=== PATIENT | female | born 1955 | race Caucasian/White ===

== ENCOUNTER 2019-03-15 04:19 | Inpatient (IN) | payer MEDICARE, MEDICAID ==
[2019-03-12 14:09] LABS: BASOPHILS # (AUTO) 0.04 x10^3/uL (0-0.1); BASOPHILS % (AUTO) 0 % (0-1); EOSINOPHILS # (AUTO) 0.14 x10^3/uL (0-0.4); EOSINOPHILS % (AUTO) 1 % (1-7); LYMPHOCYTES # (AUTO) 3.53 x10^3/uL (1-3.4); LYMPHOCYTES % (AUTO) 32 % (22-44); MD NO; MEAN CORPUSCULAR HEMOGLOBIN 29.6 pg (27.0-34.8); MEAN CORPUSCULAR HGB CONC 32.7 g/dL (32.4-35.8); MEAN CORPUSCULAR VOLUME 90.6 fL (80-100); MEAN PLATELET VOLUME 7.4 fL (7.4-10.4); MONOCYTES # (AUTO) 0.68 x10^3/uL (0.2-0.8); MONOCYTES % (AUTO) 6 % (2-9); NEUTROPHILS % (AUTO) 60 % (42-75); PLATELET COUNT 358 x10^3/uL (130-400); RED BLOOD COUNT 4.63 x10^6/uL (3.82-5.3); RED CELL DISTRIBUTION WIDTH 14.8 % (9.6-15.2)
[2019-03-12 14:21] LABS: ALBUMIN 3.6 g/dL (3.4-5.0); ANION GAP 6 mmol/L (5-15); CHLORIDE 105 mmol/L (98-107)
[2019-03-12 14:26] LABS: ALANINE AMINOTRANSFERASE 35 U/L (12-78); ALKALINE PHOSPHATASE 117 U/L (45-117); BILIRUBIN,TOTAL 0.3 mg/dL (0.2-1.0)
[2019-03-12 14:29] LABS: MICROSCOPIC NOT IND
[2019-03-12 14:33] LABS: INTERNATIONAL NORMALIZED RATIO 0.95 (0.93-1.1)
[~2019-03-15] VITALS: Ht 162.6 cm; Wt 113.0 kg
[~2019-03-15 04:19] MED LIST: FURO20TA3 PO; HYDR50TA13 PO; LAMO200T49 PO; METO25TA35 PO; OMEP-110 PO; QUET400T4 PO; TRAM50TA2 PO
[2019-03-15] MEDS ORDERED: CHLORHEXIDINE 15 ML UDC MM SCH (05:00)
[2019-03-15] MEDS ORDERED: INSULIN LISPRO 100 UNITS/ML, PEN SQ-INSULIN SCH (05:00)
[2019-03-15] MEDS ORDERED: DO NOT GIVE MC SCH (05:00)
[2019-03-15] MEDS: MUPIROCIN OINT 2%, 22GM TP SCH ×2 (05:51→19:59)
[2019-03-15 05:55] VITALS: BP_SYST 142; BP_SYST 150; BP_DIAS 82; BP_DIAS 83
[2019-03-15] MEDS ORDERED: MIDAZOLAM 10MG/2 ML ONE (06:47)
[2019-03-15] MEDS ORDERED: FENTANYL PF 250 MCG/5ML ONE ×6 (06:47→10:00)
[2019-03-15] MEDS ORDERED: PROPOFOL 10 MG/ML, 20ML ONE (06:48)
[2019-03-15] MEDS ORDERED: AMINOCAPROIC ACID 250 MG/ML, 20ML ONE ×2 (06:48)
[2019-03-15] MEDS ORDERED: ROCURONIUM 10MG/ML,5ML ONE ×2 (06:48)
[2019-03-15] MEDS ORDERED: VANCOMYCIN 1,700 MG in SODIUM CHLORIDE 0.9% 250 ML IV PRN (07:30)
[2019-03-15] MEDS ORDERED: REGULAR INSULIN 62.5 UNITS in SODIUM CHLORIDE 0.9% 249.375 ML IV PRN ×2 (07:30→07:31)
[2019-03-15] MEDS ORDERED: DEXMEDETOMIDINE 200 MCG in SODIUM CHLORIDE 0.9% 48 ML IV SCH (07:30)
[2019-03-15] MEDS ORDERED: MANNITOL PMX 20% 500 ML IVPB PRN (07:30)
[2019-03-15] MEDS ORDERED: PHENYLEPHRINE 10 MG in SODIUM CHLORIDE 0.9% 249 ML IV PRN ×2 (07:30→07:31)
[2019-03-15] MEDS ORDERED: POTASSIUM CHLORIDE 80 MEQ, SODIUM BICARBONATE 8.4% 10 MEQ, MAGNESIUM SULFATE 0.5 GM, LI... IV PRN (07:30)
[2019-03-15] MEDS ORDERED: EPINEPHRINE 2 MG in SODIUM CHLORIDE 0.9% 248 ML IV SCH (07:30)
[2019-03-15] MEDS ORDERED: ALBUMIN HUMAN 5% 500 ML IV PRN (07:30)
[2019-03-15] MEDS ORDERED: CEFUROXIME 1.5 GM in SODIUM CHLORIDE 0.9% 50 ML IVPB PRN (07:30)
[2019-03-15] MEDS ORDERED: SODIUM CHLORIDE 0.9% 1,000 ML IV PRN (07:31)
[2019-03-15] MEDS ORDERED: DEXMEDETOMIDINE 200 MCG in SODIUM CHLORIDE 0.9% 48 ML IV PRN (07:31)
[2019-03-15] MEDS ORDERED: DOBUTAMINE 250 MG in SODIUM CHLORIDE 0.9% 230 ML IV PRN (07:31)
[2019-03-15] MEDS ORDERED: NITROGLYCERIN/D5W PMX 250 ML IV PRN (07:31)
[2019-03-15] MEDS ORDERED: VASOPRESSIN 50 UNIT in SODIUM CHLORIDE 0.9% 247.5 ML IV PRN (07:31)
[2019-03-15] MEDS ORDERED: ACETAMINOPHEN 650 MG SUPP PR PRN (08:00)
[2019-03-15] MEDS ORDERED: EPINEPHRINE 2 MG in SODIUM CHLORIDE 0.9% 248 ML IV PRN (08:00)
[2019-03-15] MEDS ORDERED: DEXTROSE 50%, 50ML SYRINGE IVPush PRN (08:00)
[2019-03-15] MEDS ORDERED: INSULIN REGULAR 100 UNITS/ML, 3ML VIAL IVPush PRN (08:00)
[2019-03-15] MEDS ORDERED: DEXTROSE 4 GM TAB.CHEW PO PRN (08:00)
[2019-03-15] MEDS ORDERED: SODIUM BICARB 8.4%, 50ML SYRINGE IV PRN (08:00)
[2019-03-15] MEDS ORDERED: BISACODYL 5 MG EC TABLET PO PRN (08:00)
[2019-03-15] MEDS ORDERED: LACTATED RINGERS 1,000 ML IV PRN (08:00)
[2019-03-15] MEDS ORDERED: GLUCAGON 1 MG IM PRN (08:00)
[2019-03-15] MEDS ORDERED: MIDAZOLAM 1 MG/ML, 5ML IVPush PRN (08:00)
[2019-03-15] MEDS ORDERED: BISACODYL 10 MG SUPP PR PRN (08:00)
[2019-03-15] MEDS: DOCUSATE 100 MG CAPSULE PO SCH ×2 (09:00→20:14)
[2019-03-15] MEDS ORDERED: PROTAMINE SULFATE 10 MG/ML, 25ML ONE ×2 (09:00)
[2019-03-15] MEDS: SODIUM CHLORIDE FLUSH 10ML SYR IVF SCH ×4 (09:00→19:59)
[2019-03-15] MEDS: MUPIROCIN OINT 2%, 22GM NAS SCH ×2 (09:00→19:59)
[2019-03-15] MEDS ORDERED: LIDOCAINE-MPF 2% ,5ML ONE (09:02)
[2019-03-15] MEDS ORDERED: SODIUM BICARBONATE 1 MEQ/ML, 50ML VIAL ONE (10:36)
[2019-03-15] MEDS ORDERED: methylPREDNISolone SOD SUCC 125 MG/2 ML ONE (10:37)
[2019-03-15] MEDS ORDERED: LIDOCAINE 2%, 20ML ONE (10:38)
[2019-03-15] MEDS ORDERED: HEPARIN 1,000 UNITS/ML, 30ML ONE (10:38)
[2019-03-15] MEDS ORDERED: ALBUMIN HUMAN 25% 50 ML ONE (10:38)
[2019-03-15] MEDS: MAGNESIUM SULFATE 1 GM in SODIUM CHLORIDE 0.9% 50 ML IVPB SCH (10:39)
[2019-03-15] MEDS: FENTANYL PF 100 MCG/2ML IVPush PRN ×6 (10:39→20:03)
[2019-03-15] MEDS: INSULIN LISPRO 100 UNITS/ML, PEN SQ-INSULIN SCH ×3 (10:40→20:14)
[2019-03-15 10:43] LABS: GLUCOSE BY BLOOD GAS ANALYZER 145 mg/dL (70-110); POTASSIUM BY BLOOD GAS ANALYZR 4.2 mmol/L (3.6-5.5)
[2019-03-15 10:58] LABS: INTERNATIONAL NORMALIZED RATIO 1.04 (0.93-1.1); PROTHROMBIN TIME 10.9 Seconds (9.6-11.5)
[2019-03-15] MEDS: KSCALE TO 4.5 IV SCH ×3 (11:06→20:00)
[2019-03-15] MEDS: OXYcodone IR 5MG TABLET PO PRN ×4 (13:46→22:40)
[2019-03-15] MEDS: CYCLOBENZAPRINE 10 MG TABLET PO PRN (15:44)
[2019-03-15] MEDS: LACTATED RINGERS 1,000 ML IV SCH ×3 (17:23→22:34)
[2019-03-15] MEDS: CEFUROXIME 1.5 GM in SODIUM CHLORIDE 0.9% 50 ML IVPB SCH (18:26)
[2019-03-15] MEDS: ESMOLOL/NS PMX 250 ML IV PRN (18:41)
[2019-03-15] MEDS: VANCOMYCIN 1,700 MG in SODIUM CHLORIDE 0.9% 250 ML IVPB SCH (19:58)
[2019-03-15] MEDS: QUETIAPINE 100MG TABLET PO SCH (20:00)
[2019-03-15] MEDS: LAMOTRIGINE 200 MG TABLET PO SCH (20:00)
[2019-03-15] MEDS: HYDROcodone/APAP 10/325 MG TABLET PO PRN (20:02)
[2019-03-16] MEDS: ONDANSETRON 2MG/ML, 2ML IVPush PRN (00:40)
[2019-03-16] MEDS: CYCLOBENZAPRINE 10 MG TABLET PO PRN (01:30)
[2019-03-16] MEDS: PROCHLORPERAZINE 5 MG/ML, 2ML IVPush PRN (01:30)
[2019-03-16] MEDS: HYDROcodone/APAP 10/325 MG TABLET PO PRN (01:31)
[2019-03-16] MEDS: KSCALE TO 4.5 IV SCH (02:00)
[2019-03-16] MEDS: ESMOLOL/NS PMX 250 ML IV PRN (02:21)
[2019-03-16 02:43] LABS: BASOPHILS # (AUTO) 0.02 x10^3/uL (0-0.1); BASOPHILS % (AUTO) 0 % (0-1); EOSINOPHILS % (AUTO) 0 % (1-7); LYMPHOCYTES # (AUTO) 2.23 x10^3/uL (1-3.4); LYMPHOCYTES % (AUTO) 13 % (22-44); MD NO; MEAN CORPUSCULAR HGB CONC 33.3 g/dL (32.4-35.8); MEAN CORPUSCULAR VOLUME 90.2 fL (80-100); MEAN PLATELET VOLUME 7.8 fL (7.4-10.4); MONOCYTES # (AUTO) 0.74 x10^3/uL (0.2-0.8); MONOCYTES % (AUTO) 4 % (2-9); NEUTROPHILS # (AUTO) 14.33 x10^3/uL (1.8-6.8); NEUTROPHILS % (AUTO) 83 % (42-75); PLATELET COUNT 242 x10^3/uL (130-400); RED BLOOD COUNT 3.74 x10^6/uL (3.82-5.3); RED CELL DISTRIBUTION WIDTH 14.9 % (9.6-15.2)
[2019-03-16 02:55] LABS: INTERNATIONAL NORMALIZED RATIO 1.02 (0.93-1.1); PROTHROMBIN TIME 10.7 Seconds (9.6-11.5)
[2019-03-16 03:42] LABS: ALBUMIN 3.1 g/dL (3.4-5.0); ANION GAP 7 mmol/L (5-15); CALCIUM 8.5 mg/dL (8.5-10.1); CHLORIDE 107 mmol/L (98-107); CREATININE 0.89 mg/dL (0.55-1.02)
[2019-03-16 04:08] VITALS: BP 110/65
[2019-03-16] MEDS ORDERED: FUROSEMIDE 40 MG/4 ML IV ONE ×2 (05:30→15:00)
[2019-03-16] MEDS ORDERED: METOPROLOL TARTRATE 25 MG TABLET PO SCH (06:00)
[2019-03-16] MEDS: OXYcodone IR 5MG TABLET PO PRN (06:01)
[2019-03-16] MEDS: CEFUROXIME 1.5 GM in SODIUM CHLORIDE 0.9% 50 ML IVPB SCH (06:30)
[2019-03-16] MEDS: LAMOTRIGINE 200 MG TABLET PO SCH ×2 (07:39→21:47)
[2019-03-16] MEDS: VANCOMYCIN 1,700 MG in SODIUM CHLORIDE 0.9% 250 ML IVPB SCH (07:39)
[2019-03-16] MEDS: SODIUM CHLORIDE FLUSH 10ML SYR IVF SCH ×3 (07:40→21:46)
[2019-03-16] MEDS: DOCUSATE 100 MG CAPSULE PO SCH ×2 (07:40→21:47)
[2019-03-16] MEDS: CHLORHEXIDINE 15 ML UDC MM SCH ×2 (07:46→21:47)
[2019-03-16] MEDS: MUPIROCIN OINT 2%, 22GM NAS SCH ×2 (07:47→22:05)
[2019-03-16] MEDS: ASPIRIN 81 MG TABLET EC PO SCH (07:48)
[2019-03-16] MEDS: WARFARIN BIOPROSTHETIC VALVE PROTOCOL 2-3 XX SCH (08:10)
[2019-03-16] MEDS: INSULIN LISPRO 100 UNITS/ML, PEN SQ-INSULIN SCH ×4 (08:10→21:00)
[2019-03-16] MEDS ORDERED: KETOROLAC 30 MG/1 ML IM PRN (09:00)
[2019-03-16] MEDS: MAGNESIUM SULFATE 1 GM in SODIUM CHLORIDE 0.9% 50 ML IVPB SCH (10:17)
[2019-03-16 13:09] LABS: MICROSCOPIC AUTO
[2019-03-16 13:16] LABS: CULTURE INDICATED? NO
[2019-03-16] MEDS ORDERED: POTASSIUM CHLORIDE 20 MEQ TAB.ER.PRT PO ONE (15:00)
[2019-03-16] MEDS: METOPROLOL TARTRATE 25 MG TABLET PO SCH (16:32)
[2019-03-16] MEDS: KETOROLAC 30 MG/1 ML IV PRN ×2 (16:47→21:47)
[2019-03-16] MEDS: HYDROcodone/APAP 5/325 TABLET PO PRN (17:38)
[2019-03-16] MEDS ORDERED: WARFARIN 7.5 MG TABLET PO-COUM ONE (18:00)
[2019-03-16 19:41] VITALS: BP 100/68
[2019-03-16] MEDS ORDERED: KETOROLAC 30 MG/1 ML IV PRN (21:00)
[2019-03-16] MEDS: QUETIAPINE 100MG TABLET PO SCH (21:47)
[2019-03-17] MEDS: ONDANSETRON 2MG/ML, 2ML IVPush PRN ×4 (01:23→20:19)
[2019-03-17 01:31] VITALS: BP 113/71
[2019-03-17] MEDS: HYDROcodone/APAP 5/325 TABLET PO PRN (04:01)
[2019-03-17 06:01] VITALS: BP 134/82
[2019-03-17] MEDS: METOPROLOL TARTRATE 25 MG TABLET PO SCH ×2 (06:03→18:01)
[2019-03-17 06:44] LABS: INTERNATIONAL NORMALIZED RATIO 0.98 (0.93-1.1); PROTHROMBIN TIME 10.3 Seconds (9.6-11.5)
[2019-03-17 06:51] LABS: CALCIUM 8.7 mg/dL (8.5-10.1); CHLORIDE 103 mmol/L (98-107)
[2019-03-17 06:55] LABS: ANION GAP 7 mmol/L (5-15); CREATININE 1.75 mg/dL (0.55-1.02)
[2019-03-17 07:01] VITALS: BP 115/70
[2019-03-17 07:15] LABS: BASOPHILS # (AUTO) 0.01 x10^3/uL (0-0.1); BASOPHILS % (AUTO) 0 % (0-1); EOSINOPHILS # (AUTO) 0.09 x10^3/uL (0-0.4); EOSINOPHILS % (AUTO) 1 % (1-7); LYMPHOCYTES # (AUTO) 2.58 x10^3/uL (1-3.4); LYMPHOCYTES % (AUTO) 19 % (22-44); MD NO; MEAN CORPUSCULAR HEMOGLOBIN 29.7 pg (27.0-34.8); MEAN CORPUSCULAR HGB CONC 32.1 g/dL (32.4-35.8); MEAN CORPUSCULAR VOLUME 92.6 fL (80-100); MONOCYTES % (AUTO) 9 % (2-9); NEUTROPHILS # (AUTO) 9.42 x10^3/uL (1.8-6.8); NEUTROPHILS % (AUTO) 71 % (42-75); PLATELET COUNT 197 x10^3/uL (130-400); RED BLOOD COUNT 3.51 x10^6/uL (3.82-5.3); RED CELL DISTRIBUTION WIDTH 15.2 % (9.6-15.2)
[2019-03-17] MEDS: OXYcodone IR 5MG TABLET PO PRN ×3 (08:08→18:02)
[2019-03-17] MEDS: WARFARIN BIOPROSTHETIC VALVE PROTOCOL 2-3 XX SCH (09:00)
[2019-03-17] MEDS: ASPIRIN 81 MG TABLET EC PO SCH (09:07)
[2019-03-17] MEDS: LAMOTRIGINE 200 MG TABLET PO SCH ×2 (09:07→20:20)
[2019-03-17] MEDS: DOCUSATE 100 MG CAPSULE PO SCH ×2 (09:07→20:20)
[2019-03-17] MEDS: ACETAMINOPHEN 325 MG TABLET PO PRN (09:07)
[2019-03-17] MEDS: CHLORHEXIDINE 15 ML UDC MM SCH ×2 (09:07→20:20)
[2019-03-17] MEDS: MUPIROCIN OINT 2%, 22GM NAS SCH ×2 (09:08→20:18)
[2019-03-17] MEDS: INSULIN LISPRO 100 UNITS/ML, PEN SQ-INSULIN SCH ×4 (09:08→20:20)
[2019-03-17] MEDS: SODIUM CHLORIDE FLUSH 10ML SYR IVF SCH ×2 (09:08→20:19)
[2019-03-17] MEDS ORDERED: FUROSEMIDE 20 MG/2 ML IV SCH (10:00)
[2019-03-17] MEDS: MAGNESIUM SULFATE 1 GM in SODIUM CHLORIDE 0.9% 50 ML IVPB SCH (10:21)
[2019-03-17] MEDS ORDERED: ALBUTEROL SULFATE 2.5 MG/3 ML ONE (10:29)
[2019-03-17] MEDS ORDERED: ALBUTEROL SULFATE 2.5 MG/3 ML NPPB ONE (11:00)
[2019-03-17] MEDS ORDERED: ALBUTEROL SULFATE 2.5 MG/3 ML NPPB PRN (11:00)
[2019-03-17 14:07] VITALS: BP 129/81
[2019-03-17] MEDS ORDERED: CALCIUM CARBONATE 500 MG TAB.CHEW ONE (15:02)
[2019-03-17] MEDS ORDERED: CALCIUM CARBONATE 500 MG TAB.CHEW PO PRN (15:30)
[2019-03-17] MEDS ORDERED: WARFARIN 7.5 MG TABLET PO-COUM ONE (18:00)
[2019-03-17 19:02] VITALS: BP 123/79
[2019-03-17] MEDS: hydrOXyzine 50MG TABLET PO SCH (20:19)
[2019-03-17] MEDS: QUETIAPINE 100MG TABLET PO SCH (20:20)
[2019-03-18 01:10] VITALS: BP 111/74
[2019-03-18] MEDS: HYDROcodone/APAP 5/325 TABLET PO PRN ×3 (04:19→10:04)
[2019-03-18 05:05] LABS: ANION GAP 4 mmol/L (5-15); CALCIUM 8.7 mg/dL (8.5-10.1); CHLORIDE 104 mmol/L (98-107); CREATININE 1.27 mg/dL (0.55-1.02)
[2019-03-18 05:17] LABS: MEAN CORPUSCULAR HEMOGLOBIN 30.5 pg (27.0-34.8); MEAN CORPUSCULAR HGB CONC 33.5 g/dL (32.4-35.8); MEAN CORPUSCULAR VOLUME 91.2 fL (80-100); PLATELET COUNT 197 x10^3/uL (130-400); RED BLOOD COUNT 3.11 x10^6/uL (3.82-5.3); RED CELL DISTRIBUTION WIDTH 14.8 % (9.6-15.2)
[2019-03-18] MEDS: METOPROLOL TARTRATE 25 MG TABLET PO SCH ×2 (05:33→18:22)
[2019-03-18 05:34] VITALS: BP 111/68
[2019-03-18 05:47] LABS: MD YES
[2019-03-18 05:48] LABS: <RBC MORPHOLOGY> NORMAL; BAND#(MANUAL) 0.24 x10^3/uL; BANDS%(MANUAL) 2 % (0-7); LYMPHS% (MANUAL) 22 % (22-44); MONOS#(MANUAL) 0.83 x10^3/uL (0.3-2.7); MONOS% (MANUAL) 7 % (2-9); SEG#(MANUAL) 8.14 x10^3/uL (1.8-6.8); SEGS% (MANUAL) 69 % (42-75)
[2019-03-18 05:49] LABS: <PLATELET ESTIMATE> ADEQUATE; <PLT MORPHOLOGY> NORMAL PLT MORPH
[2019-03-18] MEDS: INSULIN LISPRO 100 UNITS/ML, PEN SQ-INSULIN SCH (08:08)
[2019-03-18] MEDS: WARFARIN BIOPROSTHETIC VALVE PROTOCOL 2-3 XX SCH (08:11)
[2019-03-18 08:36] VITALS: BP 117/75
[2019-03-18 08:48] LABS: INTERNATIONAL NORMALIZED RATIO 1.03 (0.93-1.1); PROTHROMBIN TIME 10.8 Seconds (9.6-11.5)
[2019-03-18] MEDS: DOCUSATE 100 MG CAPSULE PO SCH ×2 (10:03→21:18)
[2019-03-18] MEDS: hydrOXyzine 50MG TABLET PO SCH ×2 (10:04→21:18)
[2019-03-18] MEDS: MUPIROCIN OINT 2%, 22GM NAS SCH ×2 (10:04→21:00)
[2019-03-18] MEDS: ASPIRIN 81 MG TABLET EC PO SCH (10:04)
[2019-03-18] MEDS: LAMOTRIGINE 200 MG TABLET PO SCH ×2 (10:04→21:17)
[2019-03-18] MEDS: SODIUM CHLORIDE FLUSH 10ML SYR IVF SCH ×2 (10:05→21:18)
[2019-03-18] MEDS: FUROSEMIDE 40 MG/4 ML IV SCH (10:05)
[2019-03-18] MEDS: WARFARIN MODERAT DOSE PROTOCOL XX SCH (12:01)
[2019-03-18] MEDS: HYDROcodone/APAP 10/325 MG TABLET PO PRN ×2 (14:37→21:17)
[2019-03-18 15:18] VITALS: BP 110/73
[2019-03-18] MEDS ORDERED: WARFARIN 7.5 MG TABLET PO-COUM SCH (18:00)
[2019-03-18 18:45] VITALS: BP 117/75
[2019-03-18] MEDS: QUETIAPINE 100MG TABLET PO SCH (21:18)
[2019-03-19 02:00] VITALS: BP 143/89
[2019-03-19] MEDS: ONDANSETRON 2MG/ML, 2ML IVPush PRN ×2 (04:50→16:00)
[2019-03-19] MEDS: HYDROcodone/APAP 10/325 MG TABLET PO PRN ×2 (04:51→16:01)
[2019-03-19 05:54] LABS: MEAN CORPUSCULAR HEMOGLOBIN 30.2 pg (27.0-34.8); MEAN CORPUSCULAR HGB CONC 32.9 g/dL (32.4-35.8); MEAN CORPUSCULAR VOLUME 91.7 fL (80-100); MEAN PLATELET VOLUME 8.3 fL (7.4-10.4); PLATELET COUNT 266 x10^3/uL (130-400); RED CELL DISTRIBUTION WIDTH 15.4 % (9.6-15.2)
[2019-03-19 05:55] LABS: INTERNATIONAL NORMALIZED RATIO 1.12 (0.93-1.1); PROTHROMBIN TIME 11.7 Seconds (9.6-11.5)
[2019-03-19 06:02] LABS: ANION GAP 4 mmol/L (5-15); CALCIUM 8.6 mg/dL (8.5-10.1); CHLORIDE 104 mmol/L (98-107); CREATININE 1.12 mg/dL (0.55-1.02)
[2019-03-19 06:22] LABS: MD YES
[2019-03-19 06:24] LABS: EOS#(MANUAL) 0.21 x10^3/uL (0.0-0.4); EOS% (MANUAL) 2 % (1-7); LYMPH#(MANUAL) 3.22 x10^3/uL (1-3.4); LYMPHS% (MANUAL) 31 % (22-44); MONOS#(MANUAL) 0.62 x10^3/uL (0.3-2.7); MONOS% (MANUAL) 6 % (2-9); SEG#(MANUAL) 6.34 x10^3/uL (1.8-6.8); SEGS% (MANUAL) 61 % (42-75)
[2019-03-19 06:25] LABS: <PLATELET ESTIMATE> ADEQUATE; <PLT MORPHOLOGY> NORMAL PLT MORPH; POLYCHROMASIA 1+
[2019-03-19] MEDS: METOPROLOL TARTRATE 25 MG TABLET PO SCH (06:37)
[2019-03-19] MEDS ORDERED: LISINOPRIL 10 MG TABLET PO ONE (08:00)
[2019-03-19] MEDS ORDERED: CARVEDILOL 25 MG TABLET PO SCH (09:00)
[2019-03-19 10:24] VITALS: BP 149/86
[2019-03-19] MEDS: hydrOXyzine 50MG TABLET PO SCH ×2 (10:24→21:37)
[2019-03-19] MEDS: CARVEDILOL 12.5 MG TABLET PO SCH ×2 (10:24→18:44)
[2019-03-19] MEDS: ASPIRIN 81 MG TABLET EC PO SCH (10:24)
[2019-03-19] MEDS: MUPIROCIN OINT 2%, 22GM NAS SCH ×2 (10:25→21:37)
[2019-03-19] MEDS: ACETAMINOPHEN 325 MG TABLET PO PRN (10:25)
[2019-03-19] MEDS: LAMOTRIGINE 200 MG TABLET PO SCH ×2 (10:25→21:37)
[2019-03-19] MEDS: DOCUSATE 100 MG CAPSULE PO SCH ×2 (10:25→21:37)
[2019-03-19] MEDS: FUROSEMIDE 40 MG/4 ML IV SCH (10:25)
[2019-03-19] MEDS: MAGNESIUM HYDROXIDE 8%, 30ML UDC PO PRN (10:25)
[2019-03-19] MEDS: WARFARIN BIOPROSTHETIC VALVE PROTOCOL 2-3 XX SCH (10:26)
[2019-03-19] MEDS: SODIUM CHLORIDE FLUSH 10ML SYR IVF SCH ×2 (10:26→21:00)
[2019-03-19 10:55] VITALS: BP 158/91
[2019-03-19] MEDS: WARFARIN MODERAT DOSE PROTOCOL XX SCH (12:12)
[2019-03-19 14:48] VITALS: BP 113/70
[2019-03-19] MEDS ORDERED: WARFARIN 10 MG TABLET PO-COUM SCH (18:00)
[2019-03-19 20:41] VITALS: BP 109/70
[2019-03-19] MEDS: QUETIAPINE 100MG TABLET PO SCH (21:37)
[2019-03-20] VITALS (8 sets, daily range): BP systolic 81–125; BP diastolic 43–90
[2019-03-20] MEDS: HYDROcodone/APAP 10/325 MG TABLET PO PRN ×4 (00:34→13:57)
[2019-03-20] MEDS: ONDANSETRON 2MG/ML, 2ML IVPush PRN (00:34)
[2019-03-20 05:08] LABS: ANION GAP 6 mmol/L (5-15); CALCIUM 8.2 mg/dL (8.5-10.1); CHLORIDE 98 mmol/L (98-107); CREATININE 1.41 mg/dL (0.55-1.02)
[2019-03-20 05:42] LABS: MEAN CORPUSCULAR HEMOGLOBIN 30.5 pg (27.0-34.8); MEAN CORPUSCULAR HGB CONC 33.4 g/dL (32.4-35.8); MEAN CORPUSCULAR VOLUME 91.2 fL (80-100); MEAN PLATELET VOLUME 7.8 fL (7.4-10.4); PLATELET COUNT 287 x10^3/uL (130-400); RED BLOOD COUNT 3.11 x10^6/uL (3.82-5.3); RED CELL DISTRIBUTION WIDTH 15.1 % (9.6-15.2)
[2019-03-20 06:15] LABS: INTERNATIONAL NORMALIZED RATIO 1.22 (0.93-1.1); PROTHROMBIN TIME 12.7 Seconds (9.6-11.5)
[2019-03-20 06:22] LABS: MD YES
[2019-03-20 06:28] LABS: EOS#(MANUAL) 0.21 x10^3/uL (0.0-0.4); EOS% (MANUAL) 2 % (1-7); LYMPH#(MANUAL) 1.03 x10^3/uL (1-3.4); LYMPHS% (MANUAL) 10 % (22-44); SEG#(MANUAL) 9.06 x10^3/uL (1.8-6.8); SEGS% (MANUAL) 88 % (42-75)
[2019-03-20 06:29] LABS: <PLATELET ESTIMATE> ADEQUATE; <PLT MORPHOLOGY> NORMAL PLT MORPH; <RBC MORPHOLOGY> NORMAL
[2019-03-20] MEDS: CARVEDILOL 12.5 MG TABLET PO SCH ×2 (06:35→18:31)
[2019-03-20] MEDS: WARFARIN BIOPROSTHETIC VALVE PROTOCOL 2-3 XX SCH (08:00)
[2019-03-20] MEDS: LAMOTRIGINE 200 MG TABLET PO SCH ×2 (08:10→21:40)
[2019-03-20] MEDS: ASPIRIN 81 MG TABLET EC PO SCH (08:10)
[2019-03-20] MEDS: DOCUSATE 100 MG CAPSULE PO SCH ×2 (08:10→21:41)
[2019-03-20] MEDS: hydrOXyzine 50MG TABLET PO SCH ×2 (08:10→21:41)
[2019-03-20] MEDS: FUROSEMIDE 40 MG/4 ML IV SCH (08:11)
[2019-03-20] MEDS: SODIUM CHLORIDE FLUSH 10ML SYR IVF SCH ×2 (08:11→21:42)
[2019-03-20] MEDS ORDERED: ASPI81TA45 PO (08:57)
[2019-03-20] MEDS ORDERED: ACET325T26 PO (08:57)
[2019-03-20] MEDS ORDERED: HYDR-3245 PO (08:57)
[2019-03-20] MEDS ORDERED: HYDR50TA13 PO (08:57)
[2019-03-20] MEDS ORDERED: CYCL-259 PO (08:57)
[2019-03-20] MEDS ORDERED: DOCU100C33 PO (08:57)
[2019-03-20] MEDS ORDERED: BISA5TAB5 PO (08:57)
[2019-03-20] MEDS ORDERED: CARV12.52 PO (08:57)
[2019-03-20] MEDS ORDERED: WARF10TA PO-COUM (08:57)
[2019-03-20] MEDS ORDERED: CALC200T24 PO (08:57)
[2019-03-20] MEDS: WARFARIN MODERAT DOSE PROTOCOL XX SCH (13:05)
[2019-03-20] MEDS ORDERED: WARFARIN 10 MG TABLET PO-COUM SCH (18:00)
[2019-03-20] MEDS: HYDROcodone/APAP 5/325 TABLET PO PRN (18:32)
[2019-03-20] MEDS: ACETAMINOPHEN 325 MG TABLET PO PRN (21:40)
[2019-03-20] MEDS: QUETIAPINE 100MG TABLET PO SCH (21:41)
[2019-03-20] MEDS ORDERED: LACTATED RINGERS 500 ML IVBOLUS ONE (23:30)
[2019-03-21 00:23] VITALS: BP 106/71
[2019-03-21 01:13] VITALS: BP 119/65
[2019-03-21 03:58] VITALS: BP 146/70
[2019-03-21] MEDS: HYDROcodone/APAP 10/325 MG TABLET PO PRN ×2 (04:36→18:14)
[2019-03-21 05:16] LABS: INTERNATIONAL NORMALIZED RATIO 1.55 (0.93-1.1); PROTHROMBIN TIME 16.5 Seconds (9.6-11.5)
[2019-03-21 05:21] LABS: ANION GAP 4 mmol/L (5-15); CALCIUM 8.9 mg/dL (8.5-10.1); CHLORIDE 101 mmol/L (98-107)
[2019-03-21 05:24] LABS: CREATININE 1.13 mg/dL (0.55-1.02)
[2019-03-21] MEDS: CARVEDILOL 12.5 MG TABLET PO SCH ×2 (06:40→16:59)
[2019-03-21 07:12] VITALS: BP 116/82
[2019-03-21] MEDS: WARFARIN BIOPROSTHETIC VALVE PROTOCOL 2-3 XX SCH (09:00)
[2019-03-21] MEDS: ASPIRIN 81 MG TABLET EC PO SCH (09:44)
[2019-03-21] MEDS: hydrOXyzine 50MG TABLET PO SCH ×2 (09:45→21:27)
[2019-03-21] MEDS: WARFARIN MODERAT DOSE PROTOCOL XX SCH (09:45)
[2019-03-21] MEDS: LAMOTRIGINE 200 MG TABLET PO SCH ×2 (09:45→21:27)
[2019-03-21] MEDS: DOCUSATE 100 MG CAPSULE PO SCH ×2 (09:45→21:27)
[2019-03-21] MEDS: FUROSEMIDE 40 MG/4 ML IV SCH (09:46)
[2019-03-21] MEDS: SODIUM CHLORIDE FLUSH 10ML SYR IVF SCH ×2 (09:47→21:38)
[2019-03-21] MEDS: ACETAMINOPHEN 325 MG TABLET PO PRN ×2 (09:55→21:27)
[2019-03-21] MEDS: MAGNESIUM HYDROXIDE 8%, 30ML UDC PO PRN (09:55)
[2019-03-21 12:48] VITALS: BP 126/79
[2019-03-21] MEDS ORDERED: WARFARIN 10 MG TABLET PO-COUM SCH (18:00)
[2019-03-21] MEDS: ONDANSETRON 2MG/ML, 2ML IVPush PRN (21:22)
[2019-03-21] MEDS: QUETIAPINE 100MG TABLET PO SCH (21:27)
[2019-03-21 21:31] VITALS: BP 147/87
[2019-03-21] MEDS: OXYcodone IR 5MG TABLET PO PRN (23:37)
[2019-03-22] MEDS: PROCHLORPERAZINE 5 MG/ML, 2ML IVPush PRN (02:14)
[2019-03-22 02:21] VITALS: BP 124/84
[2019-03-22 05:17] LABS: ANION GAP 7 mmol/L (5-15); CALCIUM 8.9 mg/dL (8.5-10.1); CHLORIDE 99 mmol/L (98-107); CREATININE 1.05 mg/dL (0.55-1.02)
[2019-03-22 05:20] LABS: INTERNATIONAL NORMALIZED RATIO 1.75 (0.93-1.1); PROTHROMBIN TIME 18.7 Seconds (9.6-11.5)
[2019-03-22] MEDS: CARVEDILOL 12.5 MG TABLET PO SCH ×2 (07:49→18:16)
[2019-03-22] MEDS: OXYcodone IR 5MG TABLET PO PRN ×2 (07:50→23:44)
[2019-03-22 08:20] VITALS: BP 146/88
[2019-03-22] MEDS: hydrOXyzine 50MG TABLET PO SCH ×2 (10:12→20:50)
[2019-03-22] MEDS: POTASSIUM CHLORIDE 10 MEQ TABLET.ER PO SCH (10:12)
[2019-03-22] MEDS: ASPIRIN 81 MG TABLET EC PO SCH (10:12)
[2019-03-22] MEDS: LAMOTRIGINE 200 MG TABLET PO SCH ×2 (10:12→20:50)
[2019-03-22] MEDS: ACETAMINOPHEN 325 MG TABLET PO PRN (10:12)
[2019-03-22] MEDS: DOCUSATE 100 MG CAPSULE PO SCH ×2 (10:13→20:50)
[2019-03-22] MEDS: WARFARIN BIOPROSTHETIC VALVE PROTOCOL 2-3 XX SCH (10:13)
[2019-03-22] MEDS: FUROSEMIDE 20 MG TABLET PO SCH (10:13)
[2019-03-22] MEDS: SODIUM CHLORIDE FLUSH 10ML SYR IVF SCH ×2 (10:13→20:51)
[2019-03-22] MEDS: WARFARIN MODERAT DOSE PROTOCOL XX SCH (11:23)
[2019-03-22 13:37] VITALS: BP 113/65
[2019-03-22] MEDS: HYDROcodone/APAP 10/325 MG TABLET PO PRN (15:59)
[2019-03-22] MEDS ORDERED: WARFARIN 7.5 MG TABLET PO-COUM ONE (18:00)
[2019-03-22] MEDS: QUETIAPINE 100MG TABLET PO SCH (20:50)
[2019-03-22 20:51] VITALS: BP 159/118
[2019-03-23 03:12] VITALS: BP 148/106
[2019-03-23 05:38] VITALS: BP 127/100
[2019-03-23] MEDS: CARVEDILOL 12.5 MG TABLET PO SCH (05:39)
[2019-03-23 05:45] LABS: INTERNATIONAL NORMALIZED RATIO 1.75 (0.93-1.1); PROTHROMBIN TIME 18.7 Seconds (9.6-11.5)
[2019-03-23 05:56] LABS: ANION GAP 9 mmol/L (5-15); CALCIUM 8.7 mg/dL (8.5-10.1); CHLORIDE 100 mmol/L (98-107); CREATININE 1.15 mg/dL (0.55-1.02)
[2019-03-23] MEDS: OXYcodone IR 5MG TABLET PO PRN ×3 (08:00→14:55)
[2019-03-23] MEDS ORDERED: FURO20TA3 PO (08:40)
[2019-03-23 08:43] VITALS: BP 126/77
[2019-03-23] MEDS: WARFARIN BIOPROSTHETIC VALVE PROTOCOL 2-3 XX SCH (09:00)
[2019-03-23] MEDS: hydrOXyzine 50MG TABLET PO SCH (09:10)
[2019-03-23] MEDS: ASPIRIN 81 MG TABLET EC PO SCH (09:10)
[2019-03-23] MEDS: FUROSEMIDE 20 MG TABLET PO SCH (09:11)
[2019-03-23] MEDS: DOCUSATE 100 MG CAPSULE PO SCH (09:11)
[2019-03-23] MEDS: POTASSIUM CHLORIDE 10 MEQ TABLET.ER PO SCH (09:11)
[2019-03-23] MEDS: LAMOTRIGINE 200 MG TABLET PO SCH (09:11)
[2019-03-23] MEDS: SODIUM CHLORIDE FLUSH 10ML SYR IVF SCH (09:11)
[2019-03-23] MEDS: WARFARIN MODERAT DOSE PROTOCOL XX SCH (11:02)
[2019-03-23 13:35] VITALS: BP 130/73
[2019-03-23] MEDS ORDERED: WARFARIN 10 MG TABLET PO-COUM ONE (18:00)
== END 2019-03-23 17:05 | disposition home health service (06) | DRG 219 ==
LOC: 5SO 04:19 → CSU 08:02 → 5SO 03-16 17:55 → DCLOUNGE 03-23 16:39
PROVIDERS: ADMIT Thoracic Surgery (Cardiothoracic Vascular Surgery); ATTEND Thoracic Surgery (Cardiothoracic Vascular Surgery)
PROC: B24BZZ4 Ultrasonography of Heart with Aorta, Transesophageal (ICD-10-PCS; 2019-03-15)
PROC: 03HY32Z Insertion of Monitoring Device into Upper Artery, Percutaneous Approach (ICD-10-PCS; 2019-03-15)
PROC: 02HV33Z Insertion of Infusion Device into Superior Vena Cava, Percutaneous Approach (ICD-10-PCS; 2019-03-15)
PROC: B548ZZA Ultrasonography of Superior Vena Cava, Guidance (ICD-10-PCS; 2019-03-15)
PROC: 02UG0JZ Supplement Mitral Valve with Synthetic Substitute, Open Approach (ICD-10-PCS; principal; 2019-03-15 07:30)
PROC: 0T9B70Z Drainage of Bladder with Drainage Device, Via Natural or Artificial Opening (ICD-10-PCS; 2019-03-16)
DX: I08.0 Rheumatic disorders of both mitral and aortic valves (principal); R65.11 Systemic inflammatory response syndrome (SIRS) of non-infectious origin with acute organ dysfunction; Z68.41 Body mass index [BMI] 40.0-44.9, adult; E66.01 Morbid (severe) obesity due to excess calories; F31.9 Bipolar disorder, unspecified; E03.9 Hypothyroidism, unspecified; G89.29 Other chronic pain; I10 Essential (primary) hypertension; F41.9 Anxiety disorder, unspecified; K21.9 Gastro-esophageal reflux disease without esophagitis; J45.909 Unspecified asthma, uncomplicated
CPT/HCPCS: 36415; 36600; 71045; 71046; 80048; 80053; 81001; 81003; 82040; 82330; 82800; 82803; 82810; 82947; 82962; 83036; 83735; 84132; 84295; 85014; 85018; 85025; 85049; 85347; 85610; 85730; 86850; 86900; 86923; 87015; 87070; 87075; 87081; 87102; 87116; 87205; 87206; 93005; 93312; 93321; 93325; 93880; 94002; 94640; G0378; J0697; J1644; J1815; J1885; J1940; J2250; J2405; J2704; J2720; J3010; J3370; J3475; J3480; J7120; J7613; P9045; P9047; C1751; C1760; J0171; J0780; J2370; J2930; J7050

== ENCOUNTER → 2019-09-29 | Outpatient (CLI) | payer MEDICARE, MEDICAID ==
[~2019-09-29] MED LIST changes: +ACET325T26 PO; +ASPI81TA45 PO; +BISA5TAB5 PO; +CALC200T24 PO; +CARV-39 PO; +CARV12.52 PO; +CYCL-259 PO; +DOCU100C33 PO; +FURO-93 PO; +HYDR-3240 PO; +HYDR-3245 PO; -HYDR50TA13 PO; +HYDR50TA99 PO; +LEVO25TA4 PO; +POTA10TA31 PO; +WARF10TA PO-COUM
[2019-09-29 09:56] LABS: MICROSCOPIC NOT IND
[2019-09-29 09:59] LABS: BASOPHILS # (AUTO) 0.07 x10^3/uL (0-0.1); BASOPHILS % (AUTO) 1 % (0-1); EOSINOPHILS # (AUTO) 0.26 x10^3/uL (0-0.4); EOSINOPHILS % (AUTO) 2 % (1-7); LYMPHOCYTES # (AUTO) 3.51 x10^3/uL (1-3.4); LYMPHOCYTES % (AUTO) 30 % (22-44); MD NO; MEAN CORPUSCULAR HEMOGLOBIN 30.3 pg (27.0-34.8); MEAN CORPUSCULAR HGB CONC 32.7 g/dL (32.4-35.8); MEAN CORPUSCULAR VOLUME 92.5 fL (80-100); MEAN PLATELET VOLUME 7.8 fL (7.4-10.4); MONOCYTES # (AUTO) 1.02 x10^3/uL (0.2-0.8); MONOCYTES % (AUTO) 9 % (2-9); NEUTROPHILS # (AUTO) 6.84 x10^3/uL (1.8-6.8); NEUTROPHILS % (AUTO) 59 % (42-75); PLATELET COUNT 363 x10^3/uL (130-400); RED BLOOD COUNT 4.36 x10^6/uL (3.82-5.3); RED CELL DISTRIBUTION WIDTH 15.1 % (9.6-15.2)
[2019-09-29 10:06] LABS: INTERNATIONAL NORMALIZED RATIO 0.94 (0.93-1.1)
[2019-09-29 10:39] LABS: ALBUMIN 3.7 g/dL (3.4-5.0); ANION GAP 7 mmol/L (5-15); CALCIUM 9.2 mg/dL (8.5-10.1); CHLORIDE 104 mmol/L (98-107)
[2019-09-29 10:45] LABS: ALANINE AMINOTRANSFERASE 29 U/L (12-78); ALKALINE PHOSPHATASE 127 U/L (45-117); BILIRUBIN,TOTAL 0.5 mg/dL (0.2-1.0); CREATININE 1.24 mg/dL (0.55-1.02); TOTAL PROTEIN 8.1 g/dL (6.4-8.2)
== END | disposition home or self-care (01) ==
LOC: STAR 08:30
PROVIDERS: ATTEND Neurological Surgery
DX: S33.140A Subluxation of L4/L5 lumbar vertebra, initial encounter (principal); S33.39XA Dislocation of other parts of lumbar spine and pelvis, initial encounter; R79.1 Abnormal coagulation profile; R94.31 Abnormal electrocardiogram [ECG] [EKG]; R82.90 Unspecified abnormal findings in urine; I51.7 Cardiomegaly; Z01.810 Encounter for preprocedural cardiovascular examination; Z01.811 Encounter for preprocedural respiratory examination; Z01.812 Encounter for preprocedural laboratory examination; X58.XXXA Exposure to other specified factors, initial encounter; Y93.89 Activity, other specified; Y92.89 Other specified places as the place of occurrence of the external cause; Y99.8 Other external cause status
CPT/HCPCS: 36415; 71046; 72110; 80053; 81003; 85025; 85610; 85730; 93005

== ENCOUNTER → 2019-10-06 | Outpatient (CLI) | payer MEDICARE, MEDICAID ==
[~2019-10-06] MED LIST changes: +ALBUTEROL INHALER INH; +ALPR0.25 PO; +SUMA50TA4 PO
[2019-10-06 12:25] LABS: BASOPHILS # (AUTO) 0.05 x10^3/uL (0-0.1); BASOPHILS % (AUTO) 1 % (0-1); EOSINOPHILS # (AUTO) 0.18 x10^3/uL (0-0.4); EOSINOPHILS % (AUTO) 2 % (1-7); LYMPHOCYTES # (AUTO) 3.01 x10^3/uL (1-3.4); LYMPHOCYTES % (AUTO) 33 % (22-44); MD NO; MEAN CORPUSCULAR HEMOGLOBIN 30.2 pg (27.0-34.8); MEAN CORPUSCULAR HGB CONC 32.7 g/dL (32.4-35.8); MEAN CORPUSCULAR VOLUME 92.4 fL (80-100); MEAN PLATELET VOLUME 8.1 fL (7.4-10.4); MONOCYTES # (AUTO) 0.68 x10^3/uL (0.2-0.8); MONOCYTES % (AUTO) 8 % (2-9); NEUTROPHILS # (AUTO) 5.12 x10^3/uL (1.8-6.8); NEUTROPHILS % (AUTO) 57 % (42-75); PLATELET COUNT 378 x10^3/uL (130-400); RED BLOOD COUNT 4.59 x10^6/uL (3.82-5.3); RED CELL DISTRIBUTION WIDTH 14.7 % (9.6-15.2)
== END | disposition home or self-care (01) ==
LOC: LAB 11:28
PROVIDERS: ATTEND Neurological Surgery
DX: Z01.812 Encounter for preprocedural laboratory examination (principal); Z01.811 Encounter for preprocedural respiratory examination; Z01.810 Encounter for preprocedural cardiovascular examination; R79.1 Abnormal coagulation profile; R94.31 Abnormal electrocardiogram [ECG] [EKG]; R82.90 Unspecified abnormal findings in urine; M48.061 Spinal stenosis, lumbar region without neurogenic claudication
CPT/HCPCS: 36415; 85025

== ENCOUNTER 2019-10-08 08:50 | Observation (INO) | payer MEDICARE, MEDICAID ==
[~2019-10-08] VITALS: Ht 162.6 cm; Wt 119.0 kg
[~2019-10-08 08:50] MED LIST changes: -ALBUTEROL INHALER INH; -ALPR0.25 PO; +BACITRACIN 50,000 UNIT ONE; +BUPIVACAINE 0.25% ONE; +BUPIVACAINE/EPI 0.5% 1:200K ONE; -SUMA50TA4 PO; +VANCOMYCIN 1,000 MG ONE
[2019-10-08] MEDS ORDERED: LACTATED RINGERS 1,000 ML IV SCH (09:31)
[2019-10-08] MEDS ORDERED: VANCOMYCIN 1,000 MG ONE (09:31)
[2019-10-08] MEDS ORDERED: ALBUTEROL INHALER INH (09:37)
[2019-10-08] MEDS ORDERED: SUMA50TA4 PO (09:37)
[2019-10-08] MEDS ORDERED: ALPR0.25 PO (09:37)
[2019-10-08 09:38] VITALS: BP 134/97
[2019-10-08 09:46] LABS: MICROSCOPIC NOT IND
[2019-10-08] MEDS ORDERED: CHLORHEXIDINE 15 ML UDC MM ONE (10:00)
[2019-10-08] MEDS ORDERED: OXYcodone 5 MG/5 ML ORAL.SOL UDC PO PRN (10:30)
[2019-10-08] MEDS ORDERED: MEPERIDINE/PF 25MG/0.5ML IVPush PRN (10:30)
[2019-10-08] MEDS ORDERED: PROMETHAZINE 25 MG/ML, 1ML IVPush PRN (10:30)
[2019-10-08] MEDS ORDERED: HYDROmorphone 1 MG/ML, 1ML INJ IVPush PRN ×2 (10:30→14:30)
[2019-10-08] MEDS ORDERED: FENTANYL PF 100 MCG/2ML ONE ×5 (11:38→15:26)
[2019-10-08] MEDS ORDERED: GABAPENTIN 300 MG CAPSULE ONE (11:51)
[2019-10-08] MEDS ORDERED: GABAPENTIN 300 MG CAPSULE PO ONE (12:00)
[2019-10-08] MEDS ORDERED: ACETAMINOPHEN 500 MG TABLET PO ONE (12:00)
[2019-10-08] MEDS ORDERED: ONDANSETRON 2MG/ML, 2ML ONE (12:08)
[2019-10-08] MEDS ORDERED: PROPOFOL 10 MG/ML, 20ML ONE (12:08)
[2019-10-08] MEDS ORDERED: CEFAZOLIN 1,000 MG ONE (12:08)
[2019-10-08] MEDS ORDERED: SUGAMMADEX 200 MG/2 ML IVPush ONE (12:08)
[2019-10-08] MEDS ORDERED: SUCCINYLCHOLINE 20 MG/ML, 10ML ONE (12:08)
[2019-10-08] MEDS ORDERED: DEXAMETHASONE 4 MG/ML, 1ML ONE (12:08)
[2019-10-08] MEDS ORDERED: PHENYLEPHRINE 10 MG/ML ONE (12:08)
[2019-10-08] MEDS ORDERED: ROCURONIUM 10 MG/ML,10ML ONE (12:08)
[2019-10-08] MEDS ORDERED: MIDAZOLAM 1 MG/ML, 2ML ONE (12:41)
[2019-10-08] MEDS ORDERED: FENTANYL PF 100 MCG/2ML EPIDPUSH ONE (13:25)
[2019-10-08] MEDS ORDERED: BUPIVACAINE/PF 0.25% EPIDPUSH ONE (13:25)
[2019-10-08] MEDS ORDERED: ONDANSETRON 2MG/ML, 2ML IVPush PRN (14:30)
[2019-10-08] MEDS ORDERED: PROMETHAZINE 25 MG/ML, 1ML IM PRN (14:30)
[2019-10-08] MEDS ORDERED: BISACODYL 10 MG SUPP PR PRN (14:30)
[2019-10-08] MEDS ORDERED: SUMATRIPTAN 50 MG TABLET PO SCH (14:30)
[2019-10-08] MEDS ORDERED: PHARMACY MAY ADJ FOR RENAL FX MC PRN (14:30)
[2019-10-08] MEDS ORDERED: MAGNESIUM HYDROXIDE 8%, 30ML UDC PO PRN (14:30)
[2019-10-08] MEDS ORDERED: METHOCARBAMOL 1,000 MG in DEXTROSE 5% 100 ML IV ONE (14:30)
[2019-10-08] MEDS ORDERED: SENNA/DOCUSATE TABLET PO PRN (14:30)
[2019-10-08] MEDS ORDERED: HYDROcodone/APAP 5/325 TABLET PO PRN (14:30)
[2019-10-08] MEDS ORDERED: DIPHENHYDRAMINE 50 MG/ML, 1ML IVPush PRN (14:30)
[2019-10-08] MEDS: ENOXAPARIN 40 MG/0.4 ML SQ SCH (14:30)
[2019-10-08] MEDS ORDERED: ALBUTEROL HFA 90 MCG/SPRAY ONE (14:39)
[2019-10-08] MEDS: FENTANYL PF 100 MCG/2ML IV PRN ×5 (14:50→15:28)
[2019-10-08] MEDS ORDERED: ALBUTEROL HFA 90 MCG/SPRAY INH PRN (15:00)
[2019-10-08] MEDS ORDERED: OXYcodone 5 MG/5 ML ORAL.SOL UDC ONE (15:02)
[2019-10-08] MEDS: D5%-0.9% NACL+KCL 20MEQ 1,000 ML IV SCH ×2 (16:46→20:49)
[2019-10-08 20:17] VITALS: BP 137/84
[2019-10-08] MEDS: CEFAZOLIN PMX 1GM/50ML 50 ML IVPB SCH (20:23)
[2019-10-08] MEDS: OXYcodone/APAP 5/325MG TABLET PO PRN (20:24)
[2019-10-08] MEDS: SODIUM CHLORIDE FLUSH 10ML SYR IVF SCH (20:43)
[2019-10-08] MEDS: FUROSEMIDE 20 MG TABLET PO SCH (20:47)
[2019-10-08] MEDS: QUETIAPINE 200 MG TABLET PO SCH (20:47)
[2019-10-08] MEDS: CARVEDILOL 25 MG TABLET PO SCH (20:47)
[2019-10-08] MEDS: LAMOTRIGINE 200 MG TABLET PO SCH (21:01)
[2019-10-09 00:43] VITALS: BP 100/62
[2019-10-09] MEDS: OXYcodone/APAP 5/325MG TABLET PO PRN ×5 (01:32→20:09)
[2019-10-09] MEDS: CEFAZOLIN PMX 1GM/50ML 50 ML IVPB SCH (04:18)
[2019-10-09 04:38] VITALS: BP 95/61
[2019-10-09 07:08] VITALS: BP 111/71
[2019-10-09] MEDS: LEVOTHYROXINE 25 MCG TABLET PO SCH (08:03)
[2019-10-09] MEDS: LAMOTRIGINE 200 MG TABLET PO SCH ×2 (08:03→20:58)
[2019-10-09] MEDS: hydrOXyzine 50MG TABLET PO SCH (08:03)
[2019-10-09] MEDS: CARVEDILOL 25 MG TABLET PO SCH ×2 (08:04→20:58)
[2019-10-09] MEDS: FUROSEMIDE 20 MG TABLET PO SCH ×2 (08:04→20:58)
[2019-10-09] MEDS: POTASSIUM CHLORIDE 20 MEQ TAB.ER.PRT PO SCH (08:04)
[2019-10-09] MEDS: METHOCARBAMOL 750 MG TABLET PO PRN ×2 (08:04→22:31)
[2019-10-09] MEDS: D5%-0.9% NACL+KCL 20MEQ 1,000 ML IV SCH ×2 (08:06→20:06)
[2019-10-09] MEDS: SODIUM CHLORIDE FLUSH 10ML SYR IVF SCH ×2 (08:06→20:56)
[2019-10-09] MEDS: CEFAZOLIN PMX 1GM/50ML 50 ML IV SCH ×2 (12:37→20:03)
[2019-10-09 13:42] VITALS: BP 123/77
[2019-10-09] MEDS: ENOXAPARIN 40 MG/0.4 ML SQ SCH (13:52)
[2019-10-09 19:24] VITALS: BP 105/69
[2019-10-09] MEDS: QUETIAPINE 200 MG TABLET PO SCH (20:58)
[2019-10-10 00:23] VITALS: BP 94/57
[2019-10-10] MEDS: OXYcodone/APAP 5/325MG TABLET PO PRN ×4 (00:45→15:25)
[2019-10-10] MEDS: CEFAZOLIN PMX 1GM/50ML 50 ML IV SCH (04:00)
[2019-10-10] MEDS: D5%-0.9% NACL+KCL 20MEQ 1,000 ML IV SCH (05:25)
[2019-10-10 07:52] VITALS: BP 108/70
[2019-10-10] MEDS: CARVEDILOL 25 MG TABLET PO SCH (09:00)
[2019-10-10] MEDS ORDERED: ONDANSETRON 4 MG TABLET ONE (09:31)
[2019-10-10] MEDS: LAMOTRIGINE 200 MG TABLET PO SCH (09:32)
[2019-10-10] MEDS: SODIUM CHLORIDE FLUSH 10ML SYR IVF SCH (09:33)
[2019-10-10] MEDS: POTASSIUM CHLORIDE 20 MEQ TAB.ER.PRT PO SCH (09:33)
[2019-10-10] MEDS: hydrOXyzine 50MG TABLET PO SCH (09:33)
[2019-10-10] MEDS: LEVOTHYROXINE 25 MCG TABLET PO SCH (09:33)
[2019-10-10] MEDS: FUROSEMIDE 20 MG TABLET PO SCH (09:33)
[2019-10-10] MEDS ORDERED: ONDANSETRON ODT 4 MG PO PRN (10:00)
[2019-10-10] MEDS ORDERED: OXYC-306 PO (10:08)
[2019-10-10] MEDS ORDERED: METH750T87 PO (10:08)
[2019-10-10] MEDS ORDERED: DOXY100T PO (10:09)
[2019-10-10 13:04] VITALS: BP 114/54
[2019-10-10] MEDS: METHOCARBAMOL 750 MG TABLET PO PRN (15:25)
== END 2019-10-10 15:49 | disposition home or self-care (01) ==
LOC: OUT 08:50 → ORIP 14:22 → 4NE 15:52
PROVIDERS: ADMIT Neurological Surgery; ATTEND Neurological Surgery
DX: Z03.818 Encounter for observation for suspected exposure to other biological agents ruled out (principal); M48.062 Spinal stenosis, lumbar region with neurogenic claudication; M51.16 Intervertebral disc disorders with radiculopathy, lumbar region; M71.38 Other bursal cyst, other site; I12.9 Hypertensive chronic kidney disease with stage 1 through stage 4 chronic kidney disease, or unspecified chronic kidney disease; N18.9 Chronic kidney disease, unspecified; M47.9 Spondylosis, unspecified; E66.01 Morbid (severe) obesity due to excess calories; Z68.41 Body mass index [BMI] 40.0-44.9, adult; E03.9 Hypothyroidism, unspecified; Z79.899 Other long term (current) drug therapy
CPT/HCPCS: 36415; 63047; 63056; 63057; 63267; 72100; 81003; 87635; 96361; 96365; 96366; 96372; 96375; 97163; G0378; J0330; J0690; J1100; J1170; J1650; J2250; J2370; J2405; J2704; J2800; J3010; J3370; J3480; J3490; J7120

== ENCOUNTER → 2020-05-15 | Outpatient (CLI) | payer MEDICARE, MEDICAID ==
[~2020-05-15] MED LIST changes: +ALBUTEROL INHALER INH; +ALPR0.25 PO; -BACITRACIN 50,000 UNIT ONE; -BUPIVACAINE 0.25% ONE; -BUPIVACAINE/EPI 0.5% 1:200K ONE; +BUPR-86 PO; -CYCL-259 PO; +CYCL10TA2 PO; +DOXY100T PO; +FLUT1BLS INH; +GABA-826 PO; +HYDR-1067 PO; -HYDR-3240 PO; -HYDR-3245 PO; +HYDR1TAB53 PO; +METH750T87 PO; +OXYC-293 PO; +OXYC1TAB17 PO; +SUMA50TA4 PO; -VANCOMYCIN 1,000 MG ONE
[2020-05-15 14:23] LABS: MICROSCOPIC NOT IND
[2020-05-15 14:24] LABS: BASOPHILS % (AUTO) 1 % (0-1); EOSINOPHILS % (AUTO) 2 % (1-7); LYMPHOCYTES % (AUTO) 36 % (22-44); MEAN CORPUSCULAR HEMOGLOBIN 30.7 pg (27.0-34.8); MEAN CORPUSCULAR HGB CONC 33.8 g/dL (32.4-35.8); MEAN PLATELET VOLUME 7.3 fL (7.4-10.4); MONOCYTES % (AUTO) 8 % (2-9); NEUTROPHILS % (AUTO) 53 % (42-75); PLATELET COUNT 437 x10^3/uL (130-400); RED BLOOD COUNT 4.43 x10^6/uL (3.82-5.3); RED CELL DISTRIBUTION WIDTH 15.7 % (9.6-15.2)
[2020-05-15 14:31] LABS: MD NO
[2020-05-15 14:35] LABS: ALANINE AMINOTRANSFERASE 32 U/L (12-78); ALBUMIN 3.9 g/dL (3.4-5.0); ANION GAP 7 mmol/L (5-15); CALCIUM 9.7 mg/dL (8.5-10.1); CHLORIDE 104 mmol/L (98-107)
[2020-05-15 14:36] LABS: INTERNATIONAL NORMALIZED RATIO 1.01 (0.93-1.1); PROTHROMBIN TIME 10.8 Seconds (9.6-11.5)
[2020-05-15 14:38] LABS: ALKALINE PHOSPHATASE 185 U/L (45-117); BILIRUBIN,TOTAL 0.3 mg/dL (0.2-1.0); CREATININE 1.17 mg/dL (0.55-1.02)
== END | disposition home or self-care (01) ==
LOC: STAR 13:04
PROVIDERS: ATTEND Neurological Surgery
DX: Z01.812 Encounter for preprocedural laboratory examination (principal); Z01.811 Encounter for preprocedural respiratory examination; Z20.822 Contact with and (suspected) exposure to COVID-19; Z01.810 Encounter for preprocedural cardiovascular examination; R94.31 Abnormal electrocardiogram [ECG] [EKG]; R82.90 Unspecified abnormal findings in urine; M48.061 Spinal stenosis, lumbar region without neurogenic claudication; M54.16 Radiculopathy, lumbar region; R79.1 Abnormal coagulation profile
CPT/HCPCS: 36415; 71046; 80053; 81003; 85025; 85610; 85730; 93005; U0003